=== PATIENT | female | born 1970 | race Caucasian/White ===

== ENCOUNTER 2020-12-23 02:04 | Observation (INO) | payer OTHER ==
[~2020-12-23] VITALS: Ht 154.9 cm; Wt 77.1 kg
[~2020-12-23 02:04] MED LIST: Keflex500 MG PO; METPRE4DP PO; Norco 10-325 T1 EACH PO; Pepcid20 MG PO
[2020-12-23 02:29] LABS: BASOPHILS ABSOLUTE AUTO 0.06 K/mm3 (0.00-0.23); BASOPHILS PERCENT AUTO 1 % (0-2); EOSINOPHILS ABSOLUTE AUTO 0.24 K/mm3 (0.00-0.68); EOSINOPHILS PERCENT AUTO 3 % (0-6); Hematocrit 43.7 % (33.0-51.0); Hemoglobin 15.4 g/dL (11.5-16.0); IMMATURE GRAN ABSOLUTE AUTO 0.01 K/mm3 (0.00-0.10); IMMATURE GRAN PERCENT AUTO 0 % (0-1); LYMPHOCYTES PERCENT AUTO 28 % (21-46); MONOCYTES ABSOLUTE AUTO 0.67 K/mm3 (0.16-1.47); MONOCYTES PERCENT AUTO 9 % (4-13); Mean Corpuscular HGB 30.7 pg (26.0-34.0); Mean Corpuscular HGB Conc 35.2 g/dL (31.5-36.5); Mean Corpuscular Volume 87 fL (80-100); Mean Platelet Volume 10.3 fL (9.1-12.4); NEUTROPHILS PERCENT AUTO 59 % (41-73); Platelet Count 343 K/mm3 (150-400); RDW Standard Deviation 38.7 fL (35.1-46.3); Red Blood Cell Count 5.01 M/mm3 (3.80-5.20); White Blood Cell Count 7.18 K/mm3 (4.00-11.30)
[2020-12-23 02:41] LABS: Alanine Aminotransfer (ALT/SGP 28 U/L (12-78); Albumin, Blood 3.9 g/dL (3.4-5.0); Alk Phos 63 U/L (50-136); Anion Gap 3 mmol/L (6-16); Aspartate Aminotrans (AST/SGOT 18 U/L (12-37); Bilirubin, Total 0.3 mg/dL (0.1-1.0); Blood Urea Nitrogen 10 mg/dL (8-24); Bun/Creatinine Ratio 12.2 (12.0-20.0); CO2, Blood 27 mmol/L (21-32); Chloride, Blood 107 mmol/L (98-108); Creatinine, Blood 0.82 mg/dL (0.40-1.00); Glomerular Filtration Rate >60 (60-); Glucose, Blood 114 mg/dL (70-99); Potassium, Blood 3.8 mmol/L (3.5-5.5); Sodium, Blood 137 mmol/L (136-145); Total Protein, Blood 7.9 g/dL (6.4-8.2)
[2020-12-23 04:39] LABS: Troponin I <0.015 ng/mL (0.000-0.040)
[2020-12-23 07:06] LABS: SARS-Cov-2 (COVID-19) PCR, MMC NEGATIVE (NEGATIVE)
--- NOTE | 2020-12-23 12:29 | NUR ---
REPORT GIVEN TO NATACHA ALBARRAN.
--- NOTE | 2020-12-23 13:23 | NUR ---
PT WITH CONTINUED NAUSEA AND VOMITTING. IV ANTI NAUSEA MEDICATIONS GIVEN ORDERED BY NATACHA ALBARRAN. DR. SIMS CONSULTED WITH PT. PT STATED "I ALREADY FEEL BETTER AND RATHER GO HOME THAN ADMITTED TODAY." DR. SIMS WROTE AN RX FOR ORAL ZOFRAN FOR HOME. WILL CONTINUE TO MONITOR. PT LYING COMFORTABLY ON SIDE WITH EYES CLOSED. VSS.
--- NOTE | 2020-12-23 13:46 | NUR ---
PT STATES NAUSEA HAS RESOLVED AND SHE WANTS TO GO HOME. VSS. PT WITHIN CRITERIA FOR DC.
--- NOTE | 2020-12-23 13:47 | NUR ---
Patient up to Ambulate independently. Gait steady. Discharge instructions reviewed with patient. Patient verbalizes understanding. Copy given to patient to take home. Discharged via wheelchair to private car for ride home.
== END 2020-12-23 13:47 | disposition home or self-care (01) ==
LOC: ER 02:04 → SURS 02:05 → ERHOLD 02:05 → ER 02:05 → ERHOLD 02:05 → SURS 13:47 → ERHOLD 12-26 07:53 → SURS 12-26 07:53
PROVIDERS: Emergency Medicine; ADMIT Surgery
PROC: 0FT44ZZ Resection of Gallbladder, Percutaneous Endoscopic Approach (ICD-10-PCS; principal; 2020-12-23 08:30)
DX: K80.12 Calculus of gallbladder with acute and chronic cholecystitis without obstruction (principal); Z88.1 Allergy status to other antibiotic agents; Z20.822 Contact with and (suspected) exposure to COVID-19
CPT/HCPCS: 36415; 76705; 80053; 83690; 84484; 85025; 88304; 93005; 93010; 96365-59; 99285-25; A9270; J0295; J1100; J1885; J2250; J2405; J2550; J2704; J2765; J3010; J7120; U0004

== ENCOUNTER 2022-10-12 06:57 | Day surgery (SDC) | payer OTHER ==
[~2022-10-12] VITALS: Ht 157.5 cm; Wt 88.5 kg
[~2022-10-12 06:57] MED LIST changes: +HYDR1TAB94 PO; +IBU800 MG PO
--- NOTE | 2022-10-12 08:51 | NUR ---
History, Chart, Medications and Allergies reviewed before start of procedure.Lungs clear T/O to Auscultation. Pre-Op teaching done. Pt verbalizes understanding. AT BEDSIDE
--- NOTE | 2022-10-12 17:10 | NUR ---
Pt. is awake in bed and welcomes my visit. Spouse is present. Pt. is pleasant, but is a little unsettled about her anesthesia wearing off. Listne with empathy and a calming presence. Facilitate life review. Pt. displays evidence of a strong thomas and is totally ingaged with her recovery. Prayed with Pt. and Spouse. Both verbalize gratitude for the spiritual care visit and welcome this v belt builder to return.
--- NOTE | 2022-10-12 19:34 | NUR ---
SHIFT SUMMARY PT HAS STRUGGLED w/ N/V SINCE ARRIVAL TO UNIT. UNABLE TO WORK w/ THERAPY DUE TO IT. HAS SIPPED ON WATER & EMESIS x 2. PAIN REASONABLY MANAGED. ALERT & PLEASANT. SAT UP IN CHAIR THIS AFTERNOON & AMBULATED TO BATHROOM TO VOID.
--- NOTE | 2022-10-13 05:11 | NUR ---
SHIFT SUMMARY NO ACUTE CHANGES. PT SLEPT WELL. AQUACEL DRESSING TO R KNEE REMAINS CDI WITH POLAR PACK IN PLACE. UP WITH 1 SBA USING FWW + GB. PAIN MANAGED WITH SCHEDULED TYLENOL/TORADOL + 1 ROXICODONE. VIOLA PO. VOIDING SPONTANEOUSLY. PLAN TO WORK WITH PT/OT TODAY. USES CALL LIGHT APPROPRIATELY.
[2022-10-13 05:24] LABS: BASOPHILS ABSOLUTE AUTO 0.03 K/mm3 (0.00-0.23); BASOPHILS PERCENT AUTO 0 % (0-2); EOSINOPHILS PERCENT AUTO 0 % (0-6); Hematocrit 34.9 % (33.0-51.0); Hemoglobin 11.8 g/dL (11.5-16.0); IMMATURE GRAN ABSOLUTE AUTO 0.11 K/mm3 (0.00-0.10); IMMATURE GRAN PERCENT AUTO 1 % (0-1); LYMPHOCYTES ABSOLUTE AUTO 0.84 K/mm3 (0.84-5.20); LYMPHOCYTES PERCENT AUTO 4 % (21-46); MONOCYTES ABSOLUTE AUTO 1.05 K/mm3 (0.16-1.47); MONOCYTES PERCENT AUTO 5 % (4-13); Mean Corpuscular HGB 30.3 pg (26.0-34.0); Mean Corpuscular HGB Conc 33.8 g/dL (31.5-36.5); Mean Corpuscular Volume 90 fL (80-100); Mean Platelet Volume 10.5 fL (9.1-12.4); NEUTROPHILS ABSOLUTE AUTO 18.34 K/mm3 (1.96-9.15); NEUTROPHILS PERCENT AUTO 90 % (41-73); Platelet Count 352 K/mm3 (150-400); RDW Coefficient Variation 12.1 % (11.7-14.2); RDW Standard Deviation 39.2 fL (35.1-46.3); White Blood Cell Count 20.37 K/mm3 (4.00-11.30)
[2022-10-13 05:43] LABS: Bun/Creatinine Ratio 12.9 (12.0-20.0); Creatinine, Blood 0.7 mg/dL (0.40-1.00); Potassium, Blood 4.3 mmol/L (3.5-5.5)
[2022-10-13] MEDS ORDERED: Percocet 5-3251 EACH PO (07:22)
[2022-10-13] MEDS ORDERED: ASPI81CH PO (07:22)
--- NOTE | 2022-10-13 09:51 | NUR ---
Pts. spouse met me in the [place] and invited me to visit with the Pt. The P.t is sitting in a recliner and welcomes my visit. Pt. was pleasant, and verbalized that she had good rest once the nausea medicine kicked in. Pt. displayed evidence of engagement and focus on her recovery. Pt. verbalizes that she is looking forward to PT, and verbalized gratitude for the spiritual care visit.
--- NOTE | 2022-10-13 12:34 | NUR ---
DISCHARGE PT HAS CLEARED THERAPY. PAIN WELL CONTROLLED. EATING, DRINKING, & VOIDING WELL. DRSGS, SCRIPT, & POLAR PACK SENT w/ PT. ESCORTED OUT VIA W/C.
[2022-10-15] MEDS ORDERED: Colace100 MG PO (20:52)
[2022-10-15] MEDS ORDERED: ONDA4ODT MM (20:52)
== END 2022-10-13 12:38 | disposition home or self-care (01) ==
LOC: ORSCMMR 06:57 → ORD 08:15 → ORSCMMR 08:15 → SURS 12:29 → ORSCMMR 10-13 12:38
PROVIDERS: Orthopaedic Surgery
PROC: 8E0Y0CZ Robotic Assisted Procedure of Lower Extremity, Open Approach (ICD-10-PCS; principal; 2022-10-12 08:15)
PROC: 0SRC0JA Replacement of Right Knee Joint with Synthetic Substitute, Uncemented, Open Approach (ICD-10-PCS; principal; 2022-10-12 08:15)
PROC: 0SPC04Z Removal of Internal Fixation Device from Right Knee Joint, Open Approach (ICD-10-PCS; principal; 2022-10-12 08:15)
DX: M17.31 Unilateral post-traumatic osteoarthritis, right knee (principal); S82.141S Displaced bicondylar fracture of right tibia, sequela; E66.9 Obesity, unspecified; Z68.37 Body mass index [BMI] 37.0-37.9, adult
CPT/HCPCS: 27447; 20985; 20680; S2900; 36415; 73560-RT; 80048; 85025; 97110; 97116; 97161; 97530; A9270; C1776; J0171; J0735; J1100; J1170; J1885; J2250; J2370; J2405; J2550; J2704; J2765; J2795; J3010; J7120

== ENCOUNTER → 2024-07-21 | Outpatient (CLI) | payer OTHER ==
[~2024-07-21] MED LIST changes: +ASPI81CH PO; +Colace100 MG PO; +ONDA4ODT MM; +Percocet 5-3251 EACH PO
[2024-07-21 14:56] LABS: BASOPHILS ABSOLUTE AUTO 0.06 K/mm3 (0.00-0.23); BASOPHILS PERCENT AUTO 1 % (0-2); EOSINOPHILS ABSOLUTE AUTO 0.15 K/mm3 (0.00-0.68); EOSINOPHILS PERCENT AUTO 2 % (0-6); Hematocrit 43.9 % (33.0-51.0); Hemoglobin 15.1 g/dL (11.5-16.0); IMMATURE GRAN ABSOLUTE AUTO 0.02 K/mm3 (0.00-0.10); IMMATURE GRAN PERCENT AUTO 0 % (0-1); LYMPHOCYTES ABSOLUTE AUTO 0.81 K/mm3 (0.84-5.20); LYMPHOCYTES PERCENT AUTO 11 % (21-46); MONOCYTES ABSOLUTE AUTO 0.51 K/mm3 (0.16-1.47); MONOCYTES PERCENT AUTO 7 % (4-13); Mean Corpuscular HGB 31.1 pg (26.0-34.0); Mean Corpuscular HGB Conc 34.4 g/dL (31.5-36.5); Mean Corpuscular Volume 90 fL (80-100); NEUTROPHILS ABSOLUTE AUTO 6.04 K/mm3 (1.96-9.15); NEUTROPHILS PERCENT AUTO 80 % (41-73); Platelet Count 343 K/mm3 (150-400); RDW Standard Deviation 39.8 fL (35.1-46.3); Red Blood Cell Count 4.86 M/mm3 (3.80-5.20); White Blood Cell Count 7.59 K/mm3 (4.00-11.30)
[2024-07-21 15:22] LABS: Albumin, Blood 3.8 g/dL (3.4-5.0); Bilirubin, Total 0.4 mg/dL (0.1-1.0); Bun/Creatinine Ratio 10.9 (12.0-20.0); Calcium, Blood 9.9 mg/dL (8.5-10.1); Creatinine, Blood 0.73 mg/dL (0.40-1.00); Globulin, Blood 3.9 g/dL (2.2-4.0); Potassium, Blood 4.2 mmol/L (3.5-5.5); Thyroid Stimulating Hormone 1.48 uIU/mL (0.360-4.800); Total Protein, Blood 7.7 g/dL (6.4-8.2)
== END ==
LOC: LAB SHORT 14:05 → LAB 14:05
PROVIDERS: Nurse Practitioner Family
DX: R06.02 Shortness of breath (principal); I10 Essential (primary) hypertension; R53.81 Other malaise
CPT/HCPCS: 80053; 84443; 85025; 85379

== ENCOUNTER 2024-11-13 06:52 | Day surgery (SDC) | payer OTHER ==
[~2024-11-13] VITALS: Ht 154.9 cm; Wt 88.4 kg
[2024-11-13] VITALS (13 sets, daily range): BP systolic 106–144; BP diastolic 76–96
[~2024-11-13 06:52] MED LIST changes: +Acetaminophen 500 MG Tab PO SCH; +CeFAZolin Sodium 2,000 MG in NS 100 ML IV SCH; +Chlorhexidine Mouth Care 15 ML UDC MT SCH; +Lactated Ringer's 1,000 ML IV SCH; +OxyCODONE HCL 10 MG TABCR PO SCH; +Ropivacaine 0.5% HCl/Pf 123.125 MG,EPINEPHrine HCL 0.25 MG,Ketorolac Tromethamine 15 MG... INFIL SCH; +Tranexamic Acid 100 ML IV SCH
[2024-11-13] MEDS ORDERED: CeFAZolin Sodium 2,000 MG VIAL ONE (07:20)
[2024-11-13] MEDS ORDERED: Dexamethasone Sod Phos 10 MG/ML 1ML VIAL ONE (07:36)
[2024-11-13] MEDS ORDERED: propofoL 20 ML IV ONE (07:36)
[2024-11-13] MEDS ORDERED: Rocuronium Bromide 10 MG/ML 5ML Injection IV ONE (07:36)
[2024-11-13] MEDS ORDERED: Ketorolac Tromethamine 30mg Vial ONE (07:36)
[2024-11-13] MEDS ORDERED: Ondansetron HCl 2 MG / ML 2ML Vial ONE (07:36)
[2024-11-13] MEDS ORDERED: FentaNYL Citrate 50 MCG/ML 2 ML Injection ONE ×3 (07:36→11:08)
--- NOTE | 2024-11-13 07:54 | NUR ---
History, Chart, Medications and Allergies reviewed before start of procedure. Ambulatory in Day Surgery. Pre-Op teaching done. Pt verbalizes understanding. Patient confirms NPO status and agrees with scheduled surgery. Patient States Post-Procedure ride home has been arranged.
[2024-11-13] MEDS ORDERED: HYDROmorphone HCl/Pf 1MG SYR IV PRN ×3 (07:55→08:15)
[2024-11-13] MEDS ORDERED: Bisacodyl 10 MG Supp PR PRN (07:55)
[2024-11-13] MEDS ORDERED: Promethazine HCl 25 MG Tab PO PRN (08:00)
[2024-11-13] MEDS ORDERED: Magnesium Hydroxide Conc 10 ML UDC PO PRN (08:00)
[2024-11-13] MEDS ORDERED: Metoclopramide HCl 5MG / ML 2ML Vial IV PRN ×2 (08:00→08:15)
[2024-11-13] MEDS ORDERED: Acetaminophen 500 MG Tab PO SCH (08:00)
[2024-11-13] MEDS ORDERED: OxyCODONE HCL 5 MG TAB PO PRN ×2 (08:00)
[2024-11-13] MEDS ORDERED: ePHEDrine Sulfate 50 MG/ML 1ML Injection IV PRN (08:05)
[2024-11-13] MEDS ORDERED: Albuterol 2.5 MG/3 ML VIAL INH PRN (08:05)
[2024-11-13] MEDS ORDERED: Ondansetron HCl 2 MG / ML 2ML Vial IV PRN ×2 (08:05→08:10)
[2024-11-13] MEDS ORDERED: Atropine Sulfate 0.1 MG/ML 10ML SYR IV PRN (08:05)
[2024-11-13] MEDS ORDERED: FentaNYL Citrate 50 MCG/ML 2 ML Injection IV PRN ×2 (08:10→08:15)
[2024-11-13] MEDS ORDERED: Labetalol HCL 5 MG/ML 4ML Injection (Single Dose) IV PRN (08:10)
[2024-11-13] MEDS ORDERED: Clindamycin 900mg in D5W 50ML 50 ML IV SCH ×2 (08:20→17:00)
[2024-11-13] MEDS ORDERED: Lactated Ringer's 1,000 ML IV SCH (08:20)
[2024-11-13] MEDS ORDERED: DiphenhydrAMINE HCL 25 MG Cap PO PRN (08:20)
[2024-11-13] MEDS ORDERED: Scopolamine Hydrobromide Patch TOP SCH (08:20)
[2024-11-13] MEDS ORDERED: Labetalol HCL 5 MG/ML 4ML Injection (Single Dose) ONE (09:50)
[2024-11-13] MEDS ORDERED: HYDROmorphone HCl/Pf 1MG SYR ONE (10:06)
--- NOTE | 2024-11-13 11:42 | NUR ---
ARRIVAL TO UNIT PT ARRIVED TO UNIT FROM PACU AT 1135. S/P LEFT TKA. ALERT AND ORIENTED X4. VSS. ON RA - SATS >90%. DENIES CHEST PAIN, PRESSURE. NAUSEOUS BUT DENIES VOMITING. IV FLUIDS INFUSING PER EMAR. SMALL SNACKS WITHIN REACH. PAIN MANAGED PER EMAR IN PACU. AQUACEL DRESSING AND GAYLE WRAP TO LEFT KNEE C/D/I, NO SHADOWING. PPP. CAP REFILL <3 SECONDS. ABLE TO MAKE NEEDS KNOWN. CALL LIGHT WITHIN REACH. FAMILY AT BEDSIDE.
[2024-11-13] MEDS ORDERED: Ketorolac Tromethamine 15mg Vial IV SCH (12:00)
--- NOTE | 2024-11-13 16:39 | NUR ---
SHIFT SUMMARY NO ACUTE CHANGES SINCE ARRIVAL TO UNIT. S/P LEFT TKA WITH GENERAL ANESTHESIA. ALERT AND ORIENTED X4. ABLE TO MAKE NEEDS KNOWN. VSS. SATS >90% ON RA. DENIES CHEST PAIN, PRESSURE. CAP REFILL < 3 SECONDS. PPP. MANAGING PAIN PER EMAR. COOLING DEVICE IN PLACE. PERSISTENT NAUSEA WITH 2 EPISODES OF EMESIS. MANAGING PER EMAR. IVF INFUSING PER EMAR. AQUACEL WITH GAYLE WRAP TO LEFT KNEE. C/D/I WITH NO SHADOWING. VOIDING. ENCOURAGING PO INTAKE TOLERATED. CALL LIGHT IN REACH.
[2024-11-13] MEDS ORDERED: ASPI81CH PO (18:33)
[2024-11-13] MEDS ORDERED: Docusate Sodium 100 MG Cap PO SCH (21:00)
[2024-11-14 00:18] VITALS: BP 120/72
[2024-11-14 05:02] LABS: BASOPHILS ABSOLUTE AUTO 0.01 K/mm3 (0.00-0.23); BASOPHILS PERCENT AUTO 0 % (0-2); EOSINOPHILS PERCENT AUTO 0 % (0-6); Hematocrit 34.6 % (33.0-51.0); Hemoglobin 11.6 g/dL (11.5-16.0); IMMATURE GRAN ABSOLUTE AUTO 0.03 K/mm3 (0.00-0.10); IMMATURE GRAN PERCENT AUTO 0 % (0-1); LYMPHOCYTES ABSOLUTE AUTO 1.17 K/mm3 (0.84-5.20); LYMPHOCYTES PERCENT AUTO 9 % (21-46); MONOCYTES ABSOLUTE AUTO 0.74 K/mm3 (0.16-1.47); MONOCYTES PERCENT AUTO 6 % (4-13); Mean Corpuscular HGB 30.7 pg (26.0-34.0); Mean Corpuscular HGB Conc 33.5 g/dL (31.5-36.5); Mean Corpuscular Volume 92 fL (80-100); Mean Platelet Volume 10.1 fL (9.1-12.4); NEUTROPHILS ABSOLUTE AUTO 10.93 K/mm3 (1.96-9.15); NEUTROPHILS PERCENT AUTO 85 % (41-73); Platelet Count 282 K/mm3 (150-400); RDW Standard Deviation 40.7 fL (35.1-46.3); Red Blood Cell Count 3.78 M/mm3 (3.80-5.20); White Blood Cell Count 12.88 K/mm3 (4.00-11.30)
[2024-11-14 05:05] VITALS: BP 106/72
[2024-11-14 05:21] LABS: Bun/Creatinine Ratio 18.5 (12.0-20.0); Calcium, Blood 9.6 mg/dL (8.5-10.1); Creatinine, Blood 0.76 mg/dL (0.40-1.00); Potassium, Blood 3.9 mmol/L (3.5-5.5)
[2024-11-14 07:52] VITALS: BP 130/74
--- NOTE | 2024-11-14 08:02 | NUR ---
SHIFT SUMMARY PT HAD A LEFT TOTAL KNEE TODAY. OLGA LIDIA AQUACELL AND ACEWRAP. POLAR PACK IN PLACE. SCD'S OFF BUT BACK ON AFTER PT AMBULATED IN [place] WITH WALKER, GB, SBA. PATIENT DID WELL. IVF SL POST PATIENT TOLERATING FLUIDS AND VOIDING. PT HAD A VISITOR. GOT PT A FAN. MEDICATED PT WITH IV ANTIBIOTICS ORDERED AND PRN MEDS NEEDED. IVF RT HAND, PATENT. WILL SL ORDERED. LS CLEAR T/O. GOOD CIRC CHECKS, PPP. NO ACUTE CHANGES T/O NOC. USED CALL LIGHT APPROP. CALL LIGHT IN REACH AND BED IN LOWEST POSITION. PATIENT LOOKING FORWARD TO BEING D/C TODAY. WENT OVER EDUCATION RE S/S OF INFECTION, WOUND CARE, SAFETY ETC. WILL GIVE REPORT TO ONCOMING RN TAKING PATIENT.
[2024-11-14] MEDS ORDERED: Aspirin 81 MG Chew PO SCH (09:00)
--- NOTE | 2024-11-14 10:06 | NUR ---
DISCHARGE NOTE POD 1 L TKA. VSS. PAIN MANAGED WITH PRESCRIBED THERAPY AND POLAR PACK. NAUSEA IMPROVED OVERNIGHT - TOLERATING PO INTAKE. AMBULATING WITH SBA FWW GB, WBAT LLE. PHYSICAL THERAPY EVAL COMPLETED THIS MORNING. VOIDING. AQUACEL AND ACEWRAP DRESSING TO L KNEE - C/D/I, NO SHADOWING NOTED. AQUACEL DRESSING PROVIDED FOR INCISION CARE AT HOME. WRITTEN AND VERBAL EDUCATION PROVIDED - PATIENT AND SPOUSE STATE UNDERSTANDING. IV REMOVED. PERSONAL BELONGINGS WITH PATIENT. PATIENT TRANSFERRED TO PERSONAL VEHICLE VIA AT APPROX [id number].
== END 2024-11-14 09:52 | disposition home or self-care (01) ==
LOC: ORSCMMR 06:52 → ORD 08:15 → ORSCMMR 08:15 → SURS 11:24 → ORSCMMR 11-14 09:52
PROVIDERS: Orthopaedic Surgery
PROC: 0SRD0JA Replacement of Left Knee Joint with Synthetic Substitute, Uncemented, Open Approach (ICD-10-PCS; principal; 2024-11-13 08:15)
DX: M17.12 Unilateral primary osteoarthritis, left knee (principal); Z96.651 Presence of right artificial knee joint; E66.9 Obesity, unspecified; Z68.36 Body mass index [BMI] 36.0-36.9, adult
CPT/HCPCS: 36415; 73560-LT; 80048; 85025; 97110; 97116; 97162; A9270; C1713; C1776; J0171; J0690; J0735; J1100; J1171; J1885; J2405; J2704; J2765; J2795; J3010; J7120